=== PATIENT | male | born 1940 | race Caucasian/White ===

== ENCOUNTER 2021-01-18 16:01 | Emergency (ER) | payer MEDICARE, OTHER ==
[2021-01-18] MEDS ORDERED: Sodium Chloride 0.9% 10 ML Syringe FLUSH PRN (16:49)
[2021-01-18] MEDS ORDERED: Sodium Chloride 0.9% 1,000 ML IV SCH ×2 (17:00→18:15)
--- NOTE | 2021-01-18 18:14 | CR ---
INDICATION: Altered level of consciousness, recent pneumonia. CHEST ONE VIEW: An AP upright portable view of the chest was obtained 01/18/21 and compared with 01/10/21 and 12/20/20. Much better inspiration is noted, but still less than good inspiration is seen. Bilateral infiltration is noted in the mid to lower lung kaur which may be increased in the midlung field on the left and possibly decreased at the left lung base and at the right lung base, but still appearing persistent and likely on the basis of pneumonia. No definite CHF is seen. The heart is normal in size. The aorta is tortuous with calcification in the arch. No gross consolidating pneumonia or effusion was seen. IMPRESSION: Bilateral infiltration. A process such as COVID-19 would be a consideration. There are some interstitial changes which may be due to infection as well as edema. However, no gross evidence of CHF is seen. MTDD
--- NOTE | 2021-01-18 19:18 | EDM.PDOC ---
ED HPI GENERAL MEDICAL PROBLEM - General Chief Complaint: Possible Sepsis Stated Complaint: HIGH FEVER, LOW BP Time Seen by Provider: 01/18/21 16:10 Source of Information: Reports: Patient, Family History Limitations: Reports: No Limitations - History of Present Illness INITIAL COMMENTS - FREE TEXT/NARRATIVE: Patient presented to the ED because of weakness, lethargy and poor appetite. She was recently discharged from [facility] because of sepsis and Covid. There is no associated fever/chills. He has a residual cough from his recent pneumonia. - Related Data Allergies Allergy/AdvReac Type Severity Reaction Status Date / Time No Known Allergies Allergy Verified 01/18/21 17:08 Home Meds: Home Meds Amoxicillin/Potassium Clav [Augmentin 875-125 Tablet] 1 each PO BID #20 tablet 01/18/21 [Rx] Ferrous Sulfate 325 mg PO DAILY #60 tablet 01/18/21 [Rx] Social & Family History - Tobacco Use Tobacco Use Status *Q: Never Tobacco User - Caffeine Use Caffeine Use: Reports: None - Recreational Drug Use Recreational Drug Use: No ED ROS GENERAL - Review of Systems Review Of Systems: See Below Constitutional: Reports: No Symptoms, Weakness HEENT: Reports: No Symptoms Respiratory: Reports: Cough Cardiovascular: Reports: No Symptoms Endocrine: Reports: No Symptoms GI/Abdominal: Reports: No Symptoms : Reports: No Symptoms Musculoskeletal: Reports: No Symptoms Skin: Reports: No Symptoms Neurological: Reports: No Symptoms Psychiatric: Reports: No Symptoms Hematologic/Lymphatic: Reports: No Symptoms ED EXAM, GENERAL - Physical Exam Exam: See Below Exam Limited By: No Limitations General Appearance: Alert, No Apparent Distress Ears: Normal External Exam, Normal Canal, Hearing Grossly Normal Nose: Normal Inspection, Normal Mucosa, No Blood Throat/Mouth: Normal Inspection, Normal Lips, Normal Teeth, Normal Gums Head: Atraumatic, Normocephalic Neck: Normal Inspection, Supple, Non-Tender, Full Range of Motion Respiratory/Chest: No Respiratory Distress, Lungs Clear, Normal Breath Sounds Cardiovascular: Normal Peripheral Pulses, Regular Rate, Rhythm, No Edema, No Gallop GI/Abdominal: Normal Bowel Sounds, Soft, Non-Tender, No Organomegaly Back Exam: Normal Inspection, Full Range of Motion Extremities: Normal Inspection, Normal Range of Motion, Non-Tender Neurological: Alert, Oriented, CN II-XII Intact, Normal Cognition, Normal Gait Course - Vital Signs Text/Narrative:: Labs/EKG/CXR was discussed with patient an his niece NS 1 L bolus Last Recorded V/S: Last Vital Signs Temp 36.9 C 01/18/21 19:30 Pulse 90 01/18/21 19:30 Resp 22 H 01/18/21 19:30 BP 90/62 01/18/21 19:30 Pulse Ox 95 01/18/21 19:30 - Orders/Labs/Meds Orders: Active Orders 24 hr Category Date Time Status CULTURE BLOOD [BC] Urgent Lab 01/18/21 16:10 Received CULTURE BLOOD [BC] Urgent Lab 01/18/21 16:15 Received Blood Culture x2 Reflex Set [OM.PC] Urgent Oth 01/18/21 16:49 Ordered Isolation [COMM] Routine Oth 01/18/21 16:58 Ordered Saline Lock Insert [OM.PC] Routine Oth 01/18/21 16:49 Ordered EKG 12 Lead [EK] Routine Ther 01/18/21 16:49 Ordered Labs: Laboratory Tests 01/18/21 01/18/21 01/18/21 Range/Units 16:10 16:10 16:10 WBC 2.7 L (3.2-10.1) x10-3/uL RBC 2.78 L (3.90-5.90) x10(6)uL Hgb 9.4 L (12.9-17.7) g/dL Hct 28.0 L (38.3-50.1) % MCV 100.7 H (80.8-98.7) fL MCH 33.8 H (27.0-33.3) pg MCHC 33.6 (28.7-35.3) g/dL RDW 17.8 H (12.4-15.0) % Plt Count 45 L (117-477) x10(3)uL MPV 8.9 (6.7-11.0) fL Neut % (Auto) 79.7 H (40.3-71.8) % Lymph % (Auto) 15.1 L (15.8-45.3) % [place] % (Auto) 4.4 L (5.5-15.2) % Eos % (Auto) 0.1 (0.1-6.8) % Baso % (Auto) 0.7 (0.3-3.8) % Neut # (Auto) 2.2 (1.7-6.9) x10-3/uL Lymph # (Auto) 0.4 L (0.5-4.5) x10-3/uL [place] # (Auto) 0.1 (0.0-1.2) x10-3/uL Eos # (Auto) 0.0 (0.0-0.6) x10-3/uL Baso # (Auto) 0.0 (0.0-0.3) x10-3/uL Sodium 127 L (135-145) mmol/L Potassium 4.4 (3.5-5.3) mmol/L Chloride 96 L (100-110) mmol/L Carbon Dioxide 24 (21-32) mmol/L BUN 26 H (7-18) mg/dL Creatinine 1.0 (0.70-1.30) mg/dL Est Cr Clr Drug Dosing TNP Estimated GFR (MDRD) > 60 (>60) BUN/Creatinine Ratio 26.0 H (9-20) Glucose 115 (80-116) mg/dL Lactic Acid (0.4-2.0) mmol/L Calcium 7.1 L (8.6-10.2) mg/dL Total Bilirubin 1.4 H (0.1-1.3) mg/dL AST 82 H (5-25) IU/L ALT 80 H (12-36) U/L Alkaline Phosphatase 104 (56-112) IU/L Troponin I 13.5 (4.0-60.3) pg/mL C-Reactive Protein 11.1 H* (0.5-0.9) mg/dL Total Protein 4.4 L (6.0-8.0) g/dL Albumin 1.9 L (3.2-4.6) g/dL Globulin 2.5 g/dL Albumin/Globulin Ratio 0.8 Urine Color (YELLOW) Urine Appearance (CLEAR) Urine pH (5.0-6.5) Ur Specific [place] (1.010-1.025) Urine Protein (NEGATIVE) mg/dL Urine Glucose (UA) (NORMAL) mg/dL Urine Ketones (NEGATIVE) mg/dL Urine Occult Blood (NEGATIVE) Urine Nitrite (NEGATIVE) Urine Bilirubin (NEGATIVE) Urine Urobilinogen (NEGATIVE) mg/dL Ur Leukocyte Esterase (NEGATIVE) Urine RBC (0-5) Urine WBC (0-5) Ur Squamous Epith Cells (NS,R,O) Urine Bacteria (NS) 01/18/21 01/18/21 01/18/21 Range/Units 16:10 18:39 19:20 WBC (3.2-10.1) x10-3/uL RBC (3.90-5.90) x10(6)uL Hgb (12.9-17.7) g/dL Hct (38.3-50.1) % MCV (80.8-98.7) fL MCH (27.0-33.3) pg MCHC (28.7-35.3) g/dL RDW (12.4-15.0) % Plt Count (117-477) x10(3)uL MPV (6.7-11.0) fL Neut % (Auto) (40.3-71.8) % Lymph % (Auto) (15.8-45.3) % [place] % (Auto) (5.5-15.2) % Eos % (Auto) (0.1-6.8) % Baso % (Auto) (0.3-3.8) % Neut # (Auto) (1.7-6.9) x10-3/uL Lymph # (Auto) (0.5-4.5) x10-3/uL [place] # (Auto) (0.0-1.2) x10-3/uL Eos # (Auto) (0.0-0.6) x10-3/uL Baso # (Auto) (0.0-0.3) x10-3/uL Sodium (135-145) mmol/L Potassium (3.5-5.3) mmol/L Chloride (100-110) mmol/L Carbon Dioxide (21-32) mmol/L BUN (7-18) mg/dL Creatinine (0.70-1.30) mg/dL Est Cr Clr Drug Dosing Estimated GFR (MDRD) (>60) BUN/Creatinine Ratio (9-20) Glucose (80-116) mg/dL Lactic Acid 2.3 H* 2.8 H* (0.4-2.0) mmol/L Calcium (8.6-10.2) mg/dL Total Bilirubin (0.1-1.3) mg/dL AST (5-25) IU/L ALT (12-36) U/L Alkaline Phosphatase (56-112) IU/L Troponin I (4.0-60.3) pg/mL C-Reactive Protein (0.5-0.9) mg/dL Total Protein (6.0-8.0) g/dL Albumin (3.2-4.6) g/dL Globulin g/dL Albumin/Globulin Ratio Urine Color Yellow (YELLOW) Urine Appearance Clear (CLEAR) Urine pH 6.5 (5.0-6.5) Ur Specific [place] 1.010 (1.010-1.025) Urine Protein Trace (NEGATIVE) mg/dL Urine Glucose (UA) Normal (NORMAL) mg/dL Urine Ketones Negative (NEGATIVE) mg/dL Urine Occult Blood Moderate H (NEGATIVE) Urine Nitrite Negative (NEGATIVE) Urine Bilirubin Negative (NEGATIVE) Urine Urobilinogen Normal (NEGATIVE) mg/dL Ur Leukocyte Esterase Negative (NEGATIVE) Urine RBC 0-5 (0-5) Urine WBC 0-5 (0-5) Ur Squamous Epith Cells Occasional (NS,R,O) Urine Bacteria Rare H (NS) Meds: Medications Discontinued Medications Generic Name Dose Route Start Last Admin Trade Name Freq PRN Reason Stop Dose Admin Sodium Chloride 1,000 mls @ 999 mls/hr 01/18/21 17:00 01/18/21 16:30 Normal Saline IV 999 mls/hr ASDIRECTED RONALDO Administration Sodium Chloride 1,000 mls @ 999 mls/hr 01/18/21 18:15 01/18/21 18:24 Normal Saline IV 999 mls/hr ASDIRECTED RONALDO Administration Sodium Chloride 10 ml 01/18/21 16:49 Sodium Chloride 0.9% 10 Ml Syringe FLUSH ASDIRECTED PRN Keep Vein Open Departure - Departure Time of Disposition: 19:15 Disposition: Home, Self-Care 01 Condition: Good Clinical Impression: Dehydration, Anemia, Post-COVID syndrome - Discharge Information Prescriptions: Amoxicillin/Potassium Clav [Augmentin 875-125 Tablet] 1 each PO BID #20 tablet Ferrous Sulfate 325 mg PO DAILY #60 tablet Instructions: COVID-19 Frequently Asked Questions, Dehydration, Elderly, [id number] Referrals: Lamont Diane MD [Primary Care Provider] - Forms: ED Department Discharge Additional Instructions: Please read discharge instructions on dehydration and anemia Increase oral fluids Ferrous sulfate 1 tablet with Vitamin C 1 tablet daily Augmentin 875 mg twice daily for 10 days Do not take your furosemide for 3 days Sepsis Event Note (ED) - Evaluation Sepsis Screening Result: No Definite Risk - Focused Exam Vital Signs: Vital Signs Temp Pulse Resp BP Pulse Ox 01/18/21 19:30 36.9 C 90 22 H 90/62 95 01/18/21 19:00 36.8 C 57 L 18 109/65 93 L 01/18/21 18:16 61 18 110/68 94 L 01/18/21 17:45 57 L 18 98/58 L 92 L 01/18/21 17:30 56 L 18 93/59 L 92 L 01/18/21 16:59 55 L 18 86/55 L 91 L 01/18/21 16:44 52 L 18 84/50 L 94 L 01/18/21 16:30 55 L 18 86/54 L 93 L 01/18/21 16:22 65 18 87/40 L 97 01/18/21 16:01 35.7 C L 55 L 18 90/62 90 L - My Orders Last 24 Hours: My Active Orders 01/18/21 16:10 CULTURE BLOOD [BC] Urgent 01/18/21 16:15 CULTURE BLOOD [BC] Urgent 01/18/21 16:49 Blood Culture x2 Reflex Set [OM.PC] Urgent Saline Lock Insert [OM.PC] Routine EKG 12 Lead [EK] Routine 01/18/21 16:58 Isolation [COMM] Routine - Assessment/Plan Last 24 Hours: My Active Orders 01/18/21 16:10 CULTURE BLOOD [BC] Urgent 01/18/21 16:15 CULTURE BLOOD [BC] Urgent 01/18/21 16:49 Blood Culture x2 Reflex Set [OM.PC] Urgent Saline Lock Insert [OM.PC] Routine EKG 12 Lead [EK] Routine 01/18/21 16:58 Isolation [COMM] Routine
== END 2021-01-18 19:45 | disposition home or self-care (01) ==
LOC: FB.ED 16:01
DX: E86.0 Dehydration (principal); D64.9 Anemia, unspecified; Z86.16 Personal history of COVID-19
CPT/HCPCS: 36415; 71045; 80053; 81001; 83605; 84484; 85025; 86140; 87040; 87804; 87804-59; 93005; 99285-25; J7030